=== PATIENT | male | born 1965 | race Caucasian/White ===

== ENCOUNTER 2016-12-06 08:39 | Outpatient (CLI) | payer BC ==
[~2016-12-06] VITALS: Ht 185.4 cm; Wt 121.1 kg
[~2016-12-06 08:39] MED LIST: ACCUPRIL20TAB PO; ASPIRIN 32325 MG/TAB PO; ATIVAN 1MG T1 MG/TAB PO; EFFEXOR-XR150 MG PO; FIORINAL W/CODE1 CA2 PO; FLEXERIL 1010 MG/TAB PO; HCTZ 25MG TAB25 MG PO; LORTAB 5/500 501 TAB PO; LYRICA 150MG C150 MG PO; NIACIN500 M4 PO; NITROSTAT0.4 MG/TAB SL; NORVASC 10MG10 MG PO; PEPCID40 MG PO; PERCOCET 325 MG1 TA2 PO; PERCOCET 325 MG1 TAB PO; PLAVIX 75MG TAB75 MG PO; PRAVACHOL 40MG40 MG PO; RT ADVAIR 228 DISKUS IH; VALTREX 50500 MG/TAB PO
[2016-12-06] MEDS ORDERED: BYSTOLIC5 MG PO (09:09)
[2016-12-06 09:25] VITALS: BP 139/90; PULSE 87
[2016-12-06 10:15] VITALS: BP 127/73; PULSE 82
[2016-12-06 10:18] VITALS: BP 127/73; PULSE 82
[2016-12-06 10:30] VITALS: BP 120/75; PULSE 80
[2016-12-06 10:45] VITALS: BP 128/75; PULSE 85
[2016-12-06 11:00] VITALS: BP 136/77; PULSE 84; TEMP 98.1
== END 2016-12-06 11:54 | disposition home or self-care (01) ==
LOC: COL.RAD 08:39
DX: M54.12 Radiculopathy, cervical region (principal); M43.16 Spondylolisthesis, lumbar region; M54.16 Radiculopathy, lumbar region
CPT/HCPCS: Q9967

== ENCOUNTER 2016-12-10 07:19 | Outpatient (CLI) | payer BC ==
[2016-12-10] VITALS (20 sets, daily range): BP systolic 101–139; BP diastolic 57–87; PULSE 77–87; TEMP 97.7
[~2016-12-10] VITALS: Ht 185.4 cm; Wt 116.8 kg
[~2016-12-10 07:19] MED LIST changes: +BYSTOLIC5 MG PO
[2016-12-10 08:04] LABS: HEMATOCRIT 38.8 % (42.0-52.0); HEMOGLOBIN 12.9 g/dl (13.5-18.0); MEAN CELL VOLUME 90 fl (80.0-100.0); MEAN CORPUSCULAR HEMOGLOBIN 30 pg (27.0-31.0); MEAN CORPUSCULAR HGB CONC 33 g/dl (33.0-37.0); MEAN PLATELET VOLUME 11.7 fl (7.4-10.4); PLATELET COUNT 144 K/mm3 (130-400); RED BLOOD COUNT 4.31 M/mm3 (4.20-5.60); REDCELL DISTRIBUTION WIDTH-CV 13.3 % (11.5-14.5); WHITE BLOOD COUNT 7.4 K/mm3 (4.8-10.8)
[2016-12-10 08:23] LABS: CALCIUM 9.3 mg/dL (8.4-10.2); CREATININE, serum 0.91 mg/dL (0.66-1.25); POTASSIUM 3.7 mmol/L (3.4-5.0)
[2016-12-10 08:26] LABS: PROTHROMBIN TIME 10.8 SECONDS (9.7-12.8)
[2016-12-10] MEDS ORDERED: ADVIL200 MG PO (08:31)
== END 2016-12-10 11:36 | disposition home or self-care (01) ==
LOC: COL.RAD 07:19
PROVIDERS: Internal Medicine Interventional Cardiology
DX: G45.8 Other transient cerebral ischemic attacks and related syndromes (principal)
CPT/HCPCS: J2250; J3010

== ENCOUNTER 2017-01-04 08:24 | Emergency (ER) | payer BC ==
[~2017-01-04] VITALS: Ht 185.4 cm; Wt 115.5 kg
[~2017-01-04 08:24] MED LIST changes: +ADVIL200 MG PO
[2017-01-04 08:34] VITALS: TEMP 98
[2017-01-04 09:40] LABS: BASO # 0.1 (0.0-0.2); BASO % 0.7 % (0.0-2.0); EOS # 0.3 (0.0-0.7); EOS % 3.5 % (0-4.0); GRAN # 3.9 (1.4-6.5); GRAN % 54.6 % (42.2-75.2); HEMATOCRIT 40.9 % (42.0-52.0); HEMOGLOBIN 13.6 g/dl (13.5-18.0); LYMPH # 2.3 (1.2-3.4); LYMPH % 31.5 % (20.0-51.0); MEAN CELL VOLUME 90 fl (80.0-100.0); MEAN CORPUSCULAR HEMOGLOBIN 30 pg (27.0-31.0); MEAN CORPUSCULAR HGB CONC 33 g/dl (33.0-37.0); MEAN PLATELET VOLUME 10.7 fl (7.4-10.4); MONO # 0.7 (0.1-0.6); MONO % 9.4 % (1.7-9.3); PLATELET COUNT 223 K/mm3 (130-400); RED BLOOD COUNT 4.56 M/mm3 (4.20-5.60); REDCELL DISTRIBUTION WIDTH-CV 13.9 % (11.5-14.5); WHITE BLOOD COUNT 7.2 K/mm3 (4.8-10.8)
[2017-01-04 09:58] LABS: ADJUSTED CALCIUM 9.5 mg/dL (8.4-10.2); ALBUMIN 4.4 gm/dL (3.5-5.0); BILIRUBIN,TOTAL 0.5 mg/dL (0.0-1.0); CALCIUM 9.8 mg/dL (8.4-10.2); CREATININE, serum 0.87 mg/dL (0.66-1.25); POTASSIUM 3.7 mmol/L (3.4-5.0); TOTAL PROTEIN 7.8 gm/dL (6.4-8.2)
[2017-01-04] MEDS ORDERED: NORCO 325 MG-51 TAB PO (11:10)
[2017-01-04 11:31] LABS: PH 5 (5-8); SQUAMOUS EPITHELIAL 0-2 /hpf; URINE APPEARANCE Clear; URINE BACTERIA None Seen /hpf; URINE BILIRUBIN Negative (NEGATIVE); URINE BLOOD Negative (NEGATIVE); URINE COLOR Yellow; URINE GLUCOSE Negative (NEGATIVE); URINE KETONE Negative (NEGATIVE); URINE RBC 0-2 /hpf; URINE UROBILINOGEN Negative (NEGATIVE); URINE WBC 0-2 /hpf
[2017-01-04 11:38] VITALS: BP 133/81; PULSE 75
== END 2017-01-04 11:38 | disposition home or self-care (01) ==
LOC: COL.ER 08:24
PROVIDERS: Family Medicine
DX: K52.9 Noninfective gastroenteritis and colitis, unspecified (principal); K58.9 Irritable bowel syndrome, unspecified
CPT/HCPCS: J2270; J2405; J7030; Q9967

== ENCOUNTER → 2017-06-21 | Outpatient (CLI) | payer BC ==
[~2017-06-21] MED LIST changes: +NORCO 325 MG-51 TAB PO
== END ==
LOC: MHCPAIN 10:11
DX: G89.29 Other chronic pain (principal); M47.27 Other spondylosis with radiculopathy, lumbosacral region; M53.3 Sacrococcygeal disorders, not elsewhere classified; M96.1 Postlaminectomy syndrome, not elsewhere classified; M50.90 Cervical disc disorder, unspecified, unspecified cervical region; R51 Headache
CPT/HCPCS: G0463

== ENCOUNTER → 2017-07-21 | Outpatient (CLI) | payer BC | LOC: MHCPAIN 13:01 | DX: M50.31 Other cervical disc degeneration, high cervical region (principal); Z98.1 Arthrodesis status ==

== ENCOUNTER → 2017-07-27 | Outpatient (CLI) | payer BC | LOC: MHCPAIN 15:36 | DX: G89.29 Other chronic pain (principal); M50.90 Cervical disc disorder, unspecified, unspecified cervical region; M54.81 Occipital neuralgia; M79.2 Neuralgia and neuritis, unspecified; E66.9 Obesity, unspecified; Z68.35 Body mass index [BMI] 35.0-35.9, adult | CPT/HCPCS: G0463 ==

== ENCOUNTER → 2017-10-06 | Outpatient (CLI) | payer BC ==
[~2017-10-06] MED LIST changes: +OMEGA-3 FISH1000 MG PO; +PROTONIX 40MG T40 MG PO
== END ==
LOC: COL.RAD 09-28 13:00
DX: Z01.89 Encounter for other specified special examinations (principal)

== ENCOUNTER → 2018-08-29 | Outpatient (CLI) | payer BC | LOC: COL.RAD 13:40 | DX: M51.17 Intervertebral disc disorders with radiculopathy, lumbosacral region (principal); M99.73 Connective tissue and disc stenosis of intervertebral foramina of lumbar region; Z98.890 Other specified postprocedural states | CPT/HCPCS: A9585 ==

== ENCOUNTER → 2018-12-06 | Outpatient (CLI) | payer BC | LOC: BHSO 09:49 | DX: F33.1 Major depressive disorder, recurrent, moderate (principal) ==

== ENCOUNTER → 2019-01-16 | Outpatient (CLI) | payer BC | LOC: BHSO 11:14 | DX: F33.41 Major depressive disorder, recurrent, in partial remission (principal) | CPT/HCPCS: G0463 ==

== ENCOUNTER → 2021-03-12 | Outpatient (CLI) | payer BC ==
[~2021-03-12] MED LIST changes: +OMNICEF 300MG300 MG PO
== END ==
LOC: COL.RAD 11:08
DX: R93.1 Abnormal findings on diagnostic imaging of heart and coronary circulation (principal); Z95.5 Presence of coronary angioplasty implant and graft
CPT/HCPCS: Q9967

== ENCOUNTER 2021-07-21 13:38 | Emergency (ER) | payer BC ==
[~2021-07-21] VITALS: Ht 185.4 cm; Wt 117.7 kg
[~2021-07-21 13:38] MED LIST changes: -OMNICEF 300MG300 MG PO
[2021-07-21 14:43] LABS: BASO % 0.5 % (0.0-2.0); EOS # 0.3 K/mm3 (0.0-0.7); EOS % 3.8 % (0-4.0); GRAN # 4.7 K/mm3 (1.4-6.5); GRAN % 63.1 % (42.2-75.2); HEMATOCRIT 42.7 % (42.0-52.0); HEMOGLOBIN 13.7 g/dl (13.5-18.0); LYMPH # 1.7 K/mm3 (1.2-3.4); LYMPH % 22.5 % (20.0-51.0); MEAN CELL VOLUME 91 fl (80.0-100.0); MEAN CORPUSCULAR HEMOGLOBIN 29 pg (27.0-31.0); MEAN CORPUSCULAR HGB CONC 32 g/dl (33.0-37.0); MEAN PLATELET VOLUME 10.5 fl (7.4-10.4); MONO # 0.7 K/mm3 (0.1-0.6); MONO % 9.8 % (1.7-9.3); PLATELET COUNT 241 K/mm3 (130-400); RED BLOOD COUNT 4.67 M/mm3 (4.20-5.60); REDCELL DISTRIBUTION WIDTH-CV 12.3 % (11.5-14.5)
[2021-07-21 15:00] LABS: INR 1.1 (0.8-3.0); PROTHROMBIN TIME 12.7 SECONDS (9.7-12.8)
[2021-07-21] MEDS ORDERED: OMNICEF 300MG300 MG PO (15:54)
[2021-07-21 16:01] VITALS: BP 154/98; PULSE 68
== END 2021-07-21 16:04 | disposition home or self-care (01) ==
LOC: COL.ER 13:38
PROVIDERS: Nurse Practitioner
DX: R04.0 Epistaxis (principal); I10 Essential (primary) hypertension; I25.10 Atherosclerotic heart disease of native coronary artery without angina pectoris; Z79.82 Long term (current) use of aspirin; Z79.899 Other long term (current) drug therapy